=== PATIENT | female | born 1980 | race Caucasian/White ===

== ENCOUNTER 2021-04-11 08:23 | Outpatient (CLI) | payer OTHER, SELFPAY ==
--- NOTE | ~2021-04-11 | US_ITS ---
US right upper quadrant INDICATION: Limited liver enzymes PROCEDURE: Realtime right upper abdominal ultrasound. COMPARISON: No prior studies for comparison. FINDINGS: The pancreas is normal without focal mass or pancreatic ductal dilation. Liver echotexture is heterogeneous without focal mass or intrahepatic biliary dilatation. There is normal directional flow in the portal vein. The gallbladder is normal without stones, gallbladder wall thickening or pericholecystic fluid. Comm on bile duct measures 3 mm. No sonographic Boothe's sign. IMPRESSION: 1: Unremarkable limited abdominal ultrasound. Reviewed, dictated and finalized at location A.
== END 2021-04-11 08:24 | disposition home or self-care (01) ==
LOC: CHSIMG 08:27
PROVIDERS: PCP Family Medicine; Visit Provider Family Medicine
DX: R74.8 Abnormal levels of other serum enzymes (principal)
CPT/HCPCS: 76705

== ENCOUNTER 2022-06-23 11:12 | Outpatient (RCR) | payer OTHER, SELFPAY | END 2022-07-23 23:59 | disposition home or self-care (01) | LOC: CHSWOUND 11:12 | PROVIDERS: PCP Family Medicine; Visit Provider Nurse Practitioner Acute Care | DX: L89.523 Pressure ulcer of left ankle, stage 3 (principal); L89.513 Pressure ulcer of right ankle, stage 3; M06.9 Rheumatoid arthritis, unspecified; M35.00 Sjogren syndrome, unspecified | CPT/HCPCS: 11042; 99213; G0463 ==